=== PATIENT | male | born 1960 | race African-American/Black ===

== ENCOUNTER 2017-08-24 09:52 | Emergency (ER) | payer MEDICAID ==
[~2017-08-24] VITALS: Ht 170.2 cm; Wt 82.0 kg
[~2017-08-24 09:52] MED LIST: BACT800T5 PO; IBUP800T23 PO; LISI-363 PO
[2017-08-24 10:00] VITALS: BP 126/81; PULSE 81; RESP 15; TEMP 98.1; O2SAT 100
[2017-08-24] MEDS ORDERED: HYDR-2374 PO (10:12)
[2017-08-24] MEDS ORDERED: LISI-515 PO (10:12)
[2017-08-24] MEDS ORDERED: LIDOCAINE HCL 1% PF 30 ML VIAL INFIL ONE (10:30)
[2017-08-24] MEDS ORDERED: BACT800T5 PO (10:33)
--- NOTE | 2017-08-24 10:39 | PD ---
HPI Chief Complaint: Bite or Sting Time Seen by Provider: 10:05 Travel History International Travel<30 days: No Contact w/Intl Traveler<30days: No Traveled to known affect area: No History of Present Illness HPI 56-year-old male presents to the emergency room for evaluation of painful lump to his chin for the past 2 days. Patient states he believes a spider or an ant bit him because he felt something bite and then fall onto his hand. He has been squeezing it and getting significant drainage from the area but just wants antibiotics so it will go away. He denies any fever, chills, nausea, vomiting. Denies any difficulty eating or drinking. Denies any dental pain. History of hypertension and chronic low back pain. PFSH Past Medical History Diminished Hearing: No Hypertension: Yes Musculoskeletal: Yes (CHRONIC BACK PAIN) Immunizations Current: Yes Social History Alcohol Use: No Tobacco Use: Yes (1/2 PK CIG) Substance Use: No Allergies-Medications (Allergen,Severity, Reaction): Coded Allergies: No Known Allergies (Verified Adverse Reaction, Unknown, 08/24/17) Reported Meds & Prescriptions Reported Meds & Active Scripts Active Bactrim DS (Sulfamethoxazole-Trimethoprim) 800-160 Mg Tab 1 Tab PO BID Reported Lisinopril 20 Mg Tab 20 Mg PO DAILY Hydrocodone-Acetaminophen 10-300 Tab 1 Tab PO Q4H PRN Review of Systems Except as stated in HPI: all other systems reviewed are Neg Physical Exam Narrative GENERAL: Well-nourished, well-developed male in no acute distress. Afebrile. Ambulatory. SKIN: Focused skin assessment warm/dry. There is an indurated area under the chin which measures about 2 cm in diameter. It is fluctuant but there is no pointing or drainage. No surrounding inflammation or lymphangitis. HEAD: Normocephalic. EYES: No scleral icterus. No injection or drainage. NECK: Supple, trachea midline. No JVD or lymphadenopathy. CARDIOVASCULAR: Regular rate and rhythm without murmurs, gallops, or rubs. RESPIRATORY: Breath sounds equal bilaterally. No accessory muscle use. PSYCHIATRIC: No delusional thought processes. No hallucinations. Data Data Last Documented VS Vital Signs Date Time Temp Pulse Resp B/P (MAP) Pulse Ox O2 Delivery O2 Flow Rate FiO2 08/24/17 10:00 98.1 81 15 126/81 (96) 100 Orders Orders Lidocaine Pf 1% Inj (Xylocaine-Mpf 1% In (08/24/17 10:30) MDM Medical Decision Making Medical Screen Exam Complete: Yes Emergency Medical Condition: Yes Medical Record Reviewed: Yes Differential Diagnosis Abscess, cellulitis, folliculitis, spider bite Narrative Course 56-year-old male presents to the emergency room for evaluation of lesion under his chin that started 2 days ago. Patient thinks he got bit by an ant or a spider. Physical exam reveals a 2 cm area of induration under the chin. There is no surrounding erythema or lymphangitis. Nontender. No drainage. No surrounding induration. No dental pain or evidence of Robin's angina. Patient is eating and drinking normally. Breathing normally. It is extremely superficial, unlikely lymph node. Abscess was drained, see procedure note for details. Discharge with prescription for Bactrim and told to follow-up with primary care physician or return for worsening symptoms. He understands and agrees to plan. Procedures Procedure Narrative INCISION AND DRAINAGE OF ABSCESS: The area was prepped and was sterilely draped. A subcutaneous wheal of 1% lidocaine with a total number 4 mL was used to anesthetize the area properly. A number 11 scalpel was used to make a 1 cm incision across the area of the abscess. The abscess was drained, complex loculations were broken down, and irrigated with normal saline. Sterile dressing applied. Diagnosis Primary Impression: Abscess of chin Referrals: Primary Care Physician Additional Instructions: Rest and drink plenty of fluids. Take Bactrim as directed, until gone. Follow up with a primary care physician. Return to emergency room for worsening symptoms, as discussed. Med/Other Pt SpecificInfo: Prescription(s) given Scripts Sulfamethoxazole-Trimethoprim (Bactrim DS) 800-160 Mg Tab 1 TAB PO BID for Infection, #14 TAB 0 Refills Prov: Rudi Nash MD 08/24/17 Disposition: 01 DISCHARGE HOME Condition: Stable Maryann Lopez August 24, 2017 10:39
== END 2017-08-24 11:08 | disposition home or self-care (01) ==
LOC: NEPK 09:52
DX: L02.01 Cutaneous abscess of face (principal)
CPT/HCPCS: 10060